=== PATIENT | female | born 1965 ===

== ENCOUNTER 2018-10-29 11:57 | Outpatient (CLI) | payer OTHER | END 2018-10-29 17:00 | disposition home or self-care (01) | LOC: RAD 11:57 | DX: R13.19 Other dysphagia (principal) ==

== ENCOUNTER 2023-11-20 10:11 | Outpatient (CLI) | payer OTHER | END 2023-11-20 10:20 | disposition home or self-care (01) | LOC: TOM 10:11 | DX: K63.5 Polyp of colon (principal) ==